=== PATIENT | male | born 1985 | race Hispanic/Latino ===

== ENCOUNTER 2024-03-08 11:48 | Emergency (ER) | payer OTHER ==
[~2024-03-08] VITALS: Ht 172.7 cm; Wt 77.1 kg
[2024-03-08 12:21] VITALS: BP 174/100; PULSE 73; RESP 18
[2024-03-08] MEDS ORDERED: CEPH500B PO (13:46)
[2024-03-08] MEDS ORDERED: IBUP-2070 PO (13:46)
[2024-03-08] MEDS: CEPHALEXIN 500 MG CAPSULE PO ONE (14:09)
[2024-03-08] MEDS: IBUPROFEN 600 MG TABLET PO ONE (14:10)
[2024-03-08] MEDS: TETANUS/DIPHTHERIA TOXOID [ADULT] 0.5 ML VIAL IM ONE (14:11)
[2024-03-08] MEDS: LIDOCAINE HCL 1% 20 ML VIAL ONE (14:55)
== END 2024-03-08 15:50 | disposition home or self-care (01) ==
LOC: EDH 11:48
DX: S61.412A Laceration without foreign body of left hand, initial encounter (principal); Z79.899 Other long term (current) drug therapy; W45.8XXA Other foreign body or object entering through skin, initial encounter; Y93.89 Activity, other specified; Y92.89 Other specified places as the place of occurrence of the external cause; Y99.8 Other external cause status
CPT/HCPCS: 12001; 73130; 90471; 90714